=== PATIENT | male | born 1970 ===

== ENCOUNTER 2019-01-04 17:48 | Emergency (ER) | payer BC ==
[2019-01-04 18:05] VITALS: BP 160/103
[2019-01-04] MEDS ORDERED: Ciprofloxacin TAB* 500 MG PO ONE ×2 (19:05→19:07)
[2019-01-04] MEDS ORDERED: Tetan/Diph/Pertus SYR(Tdap)* 0.5 ML SYR(BOOSTRIX) use SYR IM ONE (19:11)
--- NOTE | 2019-01-04 19:11 | UC ---
Skin Complaint HPI - HPI Summary HPI Summary: PATIENT STEPPED ON A NAIL LAST NIGHT 6:30 PM WHILE WALKING BAREFOOT THROUGH A RENOVATION SITE (RIGHT FOOT). THINKS THE NAIL HIT HIS HEEL BONE. UNSURE OF DATE OF LAST TETANUS. - History of Current Complaint Chief Complaint: UCSkin Time Seen by Provider: 01/04/19 18:07 Stated Complaint: STEP ON NAIL Hx Obtained From: Patient Onset/Duration: Sudden Onset, Lasting Hours, Still Present Timing: Constant Onset Severity: Moderate Current Severity: Moderate Pain Intensity: 5 Pain Scale Used: 0-10 Numeric Location: Discrete - RIGHT HEEL Character: Redness, Painful Aggravating Factor(s): Touch Alleviating Factor(s): Nothing Associated Signs & Symptoms: Positive: Tenderness - Allergy/Home Medications Allergies/Adverse Reactions: Allergies Allergy/AdvReac Type Severity Reaction Status Date / Time Penicillins Allergy GI Upset Verified 01/04/19 18:06 poison arlen extract Allergy Hives Verified 01/04/19 18:06 PMH/Surg Hx/FS Hx/Imm Hx Previously Healthy: Yes - Surgical History Surgical History: None - Family History Known Family History: Positive: Non-Contributory - Social History Alcohol Use: Daily Alcohol Amount: 6 pack Substance Use Type: None Smoking Status (MU): Never Smoked Tobacco Type: Smokeless Tobacco Review of Systems All Other Systems Reviewed And Are Negative: Yes Constitutional: Positive: Negative Skin: Positive: Other - PUNCTURE WOUND Respiratory: Positive: Negative Cardiovascular: Positive: Negative Gastrointestinal: Positive: Negative Physical Exam Triage Information Reviewed: Yes Appearance: Well-Appearing, No Pain Distress, Well-Nourished Vital Signs: Initial Vital Signs Temp 99.1 F 01/04/19 18:00 Pulse 87 01/04/19 18:00 Resp 16 01/04/19 18:00 BP 160/103 01/04/19 18:00 Pulse Ox 98 01/04/19 18:00 Vital Signs Reviewed: Yes Eyes: Positive: Conjunctiva Clear ENT: Positive: Hearing grossly normal Neck: Positive: Supple Respiratory: Positive: No respiratory distress, No accessory muscle use Cardiovascular: Positive: Pulses Normal Abdomen Description: Positive: Soft Musculoskeletal: Positive: No Edema Neurological: Positive: Alert Psychological: Positive: Age Appropriate Behavior Skin: Positive: Other - PUNCTURE WOUND BOTTOM OF RIGHT HEEL. MILDELY TENDER. Diagnostics - Radiology RIGHT FOOT XRAY Radiology Interpretation Completed By: ED Physician Summary of Radiographic Findings: NO BONY INJURY OR FB Course/Dx - Course Course Of Treatment: X-RAY UNREMARKABLE FOR BONY INJURY OR RETAINED FOREIGN BODY ON MY INITIAL INTERPRETATION. OFFICIAL RADIOLOGY READ PENDING. GIVEN THAT NAIL WENT THROUGH THE BOTTOM OF THE PATIENT'S FOOT WILL COVER WITH CIPRO TWICE DAILY FOR 7 DAYS. PATIENT UNSURE WHEN LAST TETANUS BOOSTER WAS ADMINISTERED SO HE HAS BEEN BOOSTED TODAY. FOLLOW-UP IF NEEDED. - Diagnoses Provider Diagnosis: Puncture wound of right foot Discharge - Sign-Out/Discharge Documenting (check all that apply): Patient Departure All imaging exams completed and their final reports reviewed: No - Discharge Plan Condition: Stable Disposition: HOME Prescriptions: Ciprofloxacin TAB* [Cipro 500 MG TAB*] 500 mg PO BID #12 tab Patient Education Materials: Puncture Wound (ED) Forms: *Work Release Referrals: No Primary Care Phys,NOPCP [Primary Care Provider] - Additional Instructions: GIVEN THAT YOUR PUNCTURE WOUND IS TO THE BOTTOM OF YOUR FOOT YOU ARE AT INCREASED RISK FOR INFECTION. TAKE THE ANTIBIOTICS TWICE DAILY FOR THE FULL COURSE. X-RAY TODAY UNREMARKABLE IN MY INITIAL INTERPRETATION. WE WILL CALL YOU TOMORROW IF THE RADIOLOGY READ DIFFERS. SEEK FOLLOW-UP IF YOU DEVELOP SPREADING REDNESS OF THE SKIN, PURULENT DRAINAGE, FEVER, INCREASED PAIN OR ANY OTHER CONCERNING SYMPTOMS. CALL THE NUMBER BELOW FOR ASSISTANCE IN ESTABLISHING WITH A PCP An additional resource available to assist in finding the appropriate physician for your health care needs is the [facility] ([facility]). You may contact them by calling [phone]. TETANUS IMMUNIZATION GIVEN (TDAP): You have been given an immunization against tetanus. Please record this in your records. In general, a booster is needed only once every 10 years. The tetanus shot protects against tetanus or "lockjaw," which is a complication of certain wound infections (the tetanus shot cannot protect against the actual infection). The immunization site may become warm and red due to local reaction. If this occurs, apply warm compresses and take aspirin or ibuprofen to reduce inflammation and discomfort. Return for evaluation if the reaction becomes severe. - Billing Disposition and Condition Condition: STABLE Disposition: Home
--- NOTE | 2019-01-05 08:04 | UC ---
- Progress Note Progress Note: Patient Name: ESTEFANIA PANDYA Medical Record#: [id number] Ordering Physician: Oralia Chery MD Acct.#: [id number] : 1970 Age: 48 Sex: M Location: [facility] Exam Date: 01/04/191858 ADM Status: DEP ER Order Information: FOOT RIGHT 3+ VWS Accession Number: [id number] CPT: 03844 INDICATION: Puncture wound the previous night to the right heel. Evaluation is for foreign body. COMPARISON: None. TECHNIQUE: 3 views of the right foot were obtained. FINDINGS: There is no radiographically apparent foreign body in the soft tissues overlying the plantar right hindfoot. The adequately corticated bones are properly aligned. Joint spaces appear maintained. No fracture, dislocation or focal bony abnormality is seen. IMPRESSION: Normal radiograph of the right foot. If the patient's symptoms persist, follow-up imaging is recommended. R0 Preliminary Imaging Read R0 <Electronically signed by Jd Duckworth MD in OV> 01/05/19755 Dictated By: Jd Duckworth MD Dictated Date/Time: 01/05/19755 Transcribed Date/Time: 01/05/19754 Copy to: CC:Oralia Chery MD; No Primary Care Phys,NOPCP Imaging - [facility] [place] Imaging - [facility] [address] [address] ph ([phone]) ph ([phone]) ph ([phone]) This report is only to be considered final once signed by the Provider(s) as displayed in the "<Electronically Signed by >" field (s). Absence of a signature indicates the report is in a draft status and still needs to be finalized. In the event this document was created by someone other than the signing Provider, the individual initiating the document will be listed in the "Entered by:" or "Dictated by:" sr. 1 of 1 Course/Dx - Diagnoses Provider Diagnoses: Puncture wound of right foot Discharge - Sign-Out/Discharge Documenting (check all that apply): Post-Discharge Follow Up All imaging exams completed and their final reports reviewed: Yes - Discharge Plan Condition: Stable Disposition: HOME Prescriptions: Ciprofloxacin TAB* [Cipro 500 MG TAB*] 500 mg PO BID #12 tab Patient Education Materials: Puncture Wound (ED) Forms: *Work Release Referrals: No Primary Care Phys,NOPCP [Primary Care Provider] - Additional Instructions: GIVEN THAT YOUR PUNCTURE WOUND IS TO THE BOTTOM OF YOUR FOOT YOU ARE AT INCREASED RISK FOR INFECTION. TAKE THE ANTIBIOTICS TWICE DAILY FOR THE FULL COURSE. X-RAY TODAY UNREMARKABLE IN MY INITIAL INTERPRETATION. WE WILL CALL YOU TOMORROW IF THE RADIOLOGY READ DIFFERS. SEEK FOLLOW-UP IF YOU DEVELOP SPREADING REDNESS OF THE SKIN, PURULENT DRAINAGE, FEVER, INCREASED PAIN OR ANY OTHER CONCERNING SYMPTOMS. CALL THE NUMBER BELOW FOR ASSISTANCE IN ESTABLISHING WITH A PCP An additional resource available to assist in finding the appropriate physician for your health care needs is the [facility] ([facility]et Coleman). You may contact them by calling [phone]. TETANUS IMMUNIZATION GIVEN (TDAP): You have been given an immunization against tetanus. Please record this in your records. In general, a booster is needed only once every 10 years. The tetanus shot protects against tetanus or "lockjaw," which is a complication of certain wound infections (the tetanus shot cannot protect against the actual infection). The immunization site may become warm and red due to local reaction. If this occurs, apply warm compresses and take aspirin or ibuprofen to reduce inflammation and discomfort. Return for evaluation if the reaction becomes severe. - Billing Disposition and Condition Condition: STABLE Disposition: Home
== END 2019-01-04 19:40 | disposition home or self-care (01) ==
LOC: UCEAST 17:48
DX: S91.331A Puncture wound without foreign body, right foot, initial encounter (principal); W45.0XXA Nail entering through skin, initial encounter; Y93.01 Activity, walking, marching and hiking; Y92.89 Other specified places as the place of occurrence of the external cause; Z23 Encounter for immunization; Z88.0 Allergy status to penicillin
CPT/HCPCS: 90715; 99203; A9270-GY; G0463